=== PATIENT | male | born 1990 | race African-American/Black ===

== ENCOUNTER 2017-01-03 08:38 | Emergency (ER) | payer OTHER ==
[~2017-01-03] VITALS: Ht 175.3 cm; Wt 81.6 kg
[~2017-01-03 08:38] MED LIST: AUG500 PO; NORCO1 TA2 PO
[2017-01-03 08:56] LABS: BASOPHIL % 0.3 % (0-2); PLATELET COUNT 395 x10^3mcL (130-400); RED CELL DISTRIBUTION WIDTH 13.5 % (11.5-14.5)
[2017-01-03 09:06] LABS: CALCIUM 9.1 mg/dL (8.5-10.1); CARBON DIOXIDE 27.7 mmol/L (21-32); CHLORIDE SERUM 102 mmol/L (98-107); CREATININE SERUM 0.9 mg/dL (0.7-1.3); GFR1 > 60 mL/min; GLUCOSE SERUM 161 mg/dL (74-106); POTASSIUM SERUM 4.2 mmol/L (3.5-5.1); SODIUM SERUM 139 mmol/L (136-145)
[2017-01-03 09:11] LABS: ALBUMIN 3.4 g/dL (3.4-5.0); ALKALINE PHOSPHATASE 108 U/L (46-116); ALT/SGPT 41 U/L (16-63); AST/SGOT 19 U/L (15-37); BILIRUBIN TOTAL 0.3 mg/dL (0.20-1.00)
[2017-01-03 10:02] VITALS: BP 147/76
== END 2017-01-03 09:59 | disposition short-term general hospital (02) ==
LOC: ED 08:38
PROVIDERS: Emergency Medicine
DX: S06.5X0A Traumatic subdural hemorrhage without loss of consciousness, initial encounter (principal); F15.10 Other stimulant abuse, uncomplicated; W17.89XA Other fall from one level to another, initial encounter; Y92.89 Other specified places as the place of occurrence of the external cause; Y93.89 Activity, other specified; Y99.8 Other external cause status
CPT/HCPCS: J1100; J2060; J7030

== ENCOUNTER 2017-02-01 09:06 | Inpatient (IN) | payer OTHER ==
[~2017-02-01] VITALS: Ht 172.7 cm; Wt 77.6 kg
[2017-02-01 10:21] LABS: PLATELET COUNT 333 x10^3mcL (130-400); RED CELL DISTRIBUTION WIDTH 13.6 % (11.5-14.5)
[2017-02-01 10:29] LABS: ALBUMIN 3.9 g/dL (3.4-5.0); ALKALINE PHOSPHATASE 79 U/L (46-116); ALT/SGPT 64 U/L (16-63); AST/SGOT 29 U/L (15-37); BILIRUBIN TOTAL 0.33 mg/dL (0.20-1.00); CALCIUM 9.4 mg/dL (8.5-10.1); CARBON DIOXIDE 28.8 mmol/L (21-32); CHLORIDE SERUM 87 mmol/L (98-107); CREATININE SERUM 0.7 mg/dL (0.7-1.3); GFR1 > 60 mL/min; GLUCOSE SERUM 91 mg/dL (74-106); LIPASE 96 IU/L (73-393); POTASSIUM SERUM 4.7 mmol/L (3.5-5.1); TOTAL PROTEIN, SERUM 7.7 g/dL (6.4-8.2)
[2017-02-01 10:35] LABS: SODIUM SERUM 122 mmol/L (136-145)
[2017-02-01 11:05] LABS: UA SPECIFIC GRAVITY 1.015 (1.005-1.035); microscopic required? YES; urine erythrocyte NEGATIVE (NEGATIVE)
[2017-02-01 11:16] LABS: ALBUMIN 3.5 g/dL (3.4-5.0); ALKALINE PHOSPHATASE 70 U/L (46-116); ALT/SGPT 46 U/L (16-63); AST/SGOT 30 U/L (15-37); BILIRUBIN TOTAL 0.3 mg/dL (0.20-1.00); CALCIUM 8.5 mg/dL (8.5-10.1); CARBON DIOXIDE 28.2 mmol/L (21-32); CHLORIDE SERUM 89 mmol/L (98-107); CREATININE SERUM 0.6 mg/dL (0.7-1.3); GFR1 > 60 mL/min; GLUCOSE SERUM 88 mg/dL (74-106); POTASSIUM SERUM 4.5 mmol/L (3.5-5.1)
[2017-02-01 11:20] LABS: SODIUM SERUM 121 mmol/L (136-145)
[2017-02-01] MEDS ORDERED: KEPPRA500 MG PO (12:27)
[2017-02-01 13:34] LABS: CHOLESTEROL/HDL RATIO 1.9; MAGNESIUM 1.8 mg/dL (1.8-2.4); PHOSPHOROUS 4.2 mg/dL (2.5-4.9)
[2017-02-01 13:40] LABS: T3 TOTAL 1.53 ng/mL
[2017-02-01 13:46] LABS: FREE T4 1.06 ng/dL (0.76-1.46); FREE THYROXINE INDEX 3.5 ug/dL (1.4-4.5); T4(THYROXINE) 9.3 ug/dL (4.7-13.3)
[2017-02-01 16:58] VITALS: BP 144/87
[2017-02-01 17:40] LABS: CALCIUM 9.1 mg/dL (8.5-10.1); CARBON DIOXIDE 27.4 mmol/L (21-32); CHLORIDE SERUM 89 mmol/L (98-107); CREATININE SERUM 0.8 mg/dL (0.7-1.3); GFR1 > 60 mL/min; GLUCOSE SERUM 100 mg/dL (74-106)
[2017-02-01 17:44] LABS: POTASSIUM SERUM 3.7 mmol/L (3.5-5.1); SODIUM SERUM 124 mmol/L (136-145)
[2017-02-01 20:00] VITALS: BP 119/74
[2017-02-02 00:34] LABS: AMPHETAMINE QUAL UR POSITIVE (NEG <=1000)
[2017-02-02 05:48] VITALS: BP 121/77
[2017-02-02 06:38] LABS: BASOPHIL % 0.6 % (0-2); PLATELET COUNT 314 x10^3mcL (130-400); RED CELL DISTRIBUTION WIDTH 13.8 % (11.5-14.5)
[2017-02-02 06:43] LABS: CALCIUM 8.6 mg/dL (8.5-10.1); CHLORIDE SERUM 91 mmol/L (98-107); CREATININE SERUM 0.6 mg/dL (0.7-1.3); GFR1 > 60 mL/min; GLUCOSE SERUM 79 mg/dL (74-106); PHOSPHOROUS 4.8 mg/dL (2.5-4.9); POTASSIUM SERUM 4.4 mmol/L (3.5-5.1); SODIUM SERUM 125 mmol/L (136-145)
[2017-02-02 11:22] VITALS: BP 111/57
[2017-02-02 13:10] LABS: CALCIUM 8.4 mg/dL (8.5-10.1); CARBON DIOXIDE 30.8 mmol/L (21-32); CHLORIDE SERUM 89 mmol/L (98-107); CREATININE SERUM 0.6 mg/dL (0.7-1.3); GFR1 > 60 mL/min; GLUCOSE SERUM 91 mg/dL (74-106); POTASSIUM SERUM 4.3 mmol/L (3.5-5.1)
[2017-02-02 13:12] LABS: SODIUM SERUM 123 mmol/L (136-145)
[2017-02-02 14:00] VITALS: BP 100/61; BP 116/66
[2017-02-02 18:56] VITALS: BP 116/66; BP 96/69
[2017-02-02 19:41] LABS: CALCIUM 8.3 mg/dL (8.5-10.1); CARBON DIOXIDE 29.3 mmol/L (21-32); CHLORIDE SERUM 89 mmol/L (98-107); CREATININE SERUM 0.7 mg/dL (0.7-1.3); GFR1 > 60 mL/min; GLUCOSE SERUM 74 mg/dL (74-106); POTASSIUM SERUM 4.3 mmol/L (3.5-5.1); SODIUM SERUM 126 mmol/L (136-145)
[2017-02-02 21:00] VITALS: BP 121/73
[2017-02-03 05:05] VITALS: BP 111/72
[2017-02-03 06:24] LABS: BASOPHIL % 0.4 % (0-2); PLATELET COUNT 302 x10^3mcL (130-400); RED CELL DISTRIBUTION WIDTH 13.6 % (11.5-14.5)
[2017-02-03 06:27] LABS: CALCIUM 8.7 mg/dL (8.5-10.1); CARBON DIOXIDE 28.7 mmol/L (21-32); CHLORIDE SERUM 90 mmol/L (98-107); CREATININE SERUM 0.6 mg/dL (0.7-1.3); GFR1 > 60 mL/min; GLUCOSE SERUM 77 mg/dL (74-106); POTASSIUM SERUM 4.3 mmol/L (3.5-5.1)
[2017-02-03 06:41] LABS: SODIUM SERUM 124 mmol/L (136-145)
[2017-02-03 14:07] VITALS: BP 126/77
[2017-02-03 14:20] VITALS: BP 133/82; BP 140/88
[2017-02-03 16:00] VITALS: BP 140/88
[2017-02-03 18:04] LABS: CALCIUM 8.4 mg/dL (8.5-10.1); CARBON DIOXIDE 28.3 mmol/L (21-32); CHLORIDE SERUM 89 mmol/L (98-107); CREATININE SERUM 0.7 mg/dL (0.7-1.3); GFR1 > 60 mL/min; GLUCOSE SERUM 85 mg/dL (74-106); POTASSIUM SERUM 3.5 mmol/L (3.5-5.1)
[2017-02-03 18:06] LABS: SODIUM SERUM 123 mmol/L (136-145)
[2017-02-03 19:54] VITALS: BP 121/64
[2017-02-03 23:14] VITALS: BP 130/67
[2017-02-04 01:12] LABS: CALCIUM 8.2 mg/dL (8.5-10.1); CARBON DIOXIDE 29.6 mmol/L (21-32); CHLORIDE SERUM 88 mmol/L (98-107); CREATININE SERUM 0.7 mg/dL (0.7-1.3); GFR1 > 60 mL/min; GLUCOSE SERUM 74 mg/dL (74-106); POTASSIUM SERUM 3.9 mmol/L (3.5-5.1)
[2017-02-04 01:13] LABS: SODIUM SERUM 124 mmol/L (136-145)
[2017-02-04 03:15] VITALS: BP 113/62
[2017-02-04 05:26] LABS: BASOPHIL % 0.6 % (0-2); PLATELET COUNT 311 x10^3mcL (130-400); RED CELL DISTRIBUTION WIDTH 13.5 % (11.5-14.5)
[2017-02-04 05:41] LABS: CALCIUM 8.4 mg/dL (8.5-10.1); CARBON DIOXIDE 27.1 mmol/L (21-32); CHLORIDE SERUM 90 mmol/L (98-107); CREATININE SERUM 0.6 mg/dL (0.7-1.3); GFR1 > 60 mL/min; GLUCOSE SERUM 81 mg/dL (74-106); POTASSIUM SERUM 4.5 mmol/L (3.5-5.1)
[2017-02-04 05:49] LABS: SODIUM SERUM 122 mmol/L (136-145)
[2017-02-04 07:23] LABS: CALCIUM 8.1 mg/dL (8.5-10.1); CARBON DIOXIDE 29.2 mmol/L (21-32); CHLORIDE SERUM 86 mmol/L (98-107); CREATININE SERUM 0.7 mg/dL (0.7-1.3); GFR1 > 60 mL/min; GLUCOSE SERUM 80 mg/dL (74-106); POTASSIUM SERUM 4.7 mmol/L (3.5-5.1)
[2017-02-04 07:47] LABS: SODIUM SERUM 119 mmol/L (136-145)
[2017-02-04] MEDS ORDERED: LAM100 PO (08:40)
[2017-02-04] MEDS ORDERED: SODIUM CHLORID500 M1 IV (08:44)
[2017-02-04] MEDS ORDERED: ROC1I IV (08:53)
[2017-02-04 09:02] VITALS: BP 133/69
[2017-02-04 10:07] VITALS: BP 118/90
[2017-02-04 10:28] LABS: CALCIUM 8.7 mg/dL (8.5-10.1); CARBON DIOXIDE 27.3 mmol/L (21-32); CHLORIDE SERUM 88 mmol/L (98-107); CREATININE SERUM 0.7 mg/dL (0.7-1.3); GFR1 > 60 mL/min; GLUCOSE SERUM 86 mg/dL (74-106); POTASSIUM SERUM 4.5 mmol/L (3.5-5.1)
[2017-02-04 10:57] LABS: SODIUM SERUM 119 mmol/L (136-145)
== END 2017-02-04 11:47 | disposition short-term general hospital (02) | DRG 424 ==
LOC: ED 09:06 → DU 12:33 → IC 02-03 14:15
PROVIDERS: Emergency Medicine; ADMIT Family Medicine
DX: E22.2 Syndrome of inappropriate secretion of antidiuretic hormone (principal); G93.41 Metabolic encephalopathy; I62.00 Nontraumatic subdural hemorrhage, unspecified; E86.0 Dehydration; F15.10 Other stimulant abuse, uncomplicated; F12.10 Cannabis abuse, uncomplicated; E87.0 Hyperosmolality and hypernatremia; G40.909 Epilepsy, unspecified, not intractable, without status epilepticus; Z59.0 Homelessness; N39.0 Urinary tract infection, site not specified; R64 Cachexia; Z68.27 Body mass index [BMI] 27.0-27.9, adult
CPT/HCPCS: 84439; J0696; J1100; J2150; J2405; J3490; J7030; J7040

== ENCOUNTER 2017-05-18 12:53 | Emergency (ER) | payer OTHER ==
[~2017-05-18] VITALS: Ht 172.7 cm; Wt 72.6 kg
[~2017-05-18 12:53] MED LIST changes: +KEPPRA500 MG PO; +LAM100 PO; +ROC1I IV; +SODIUM CHLORID500 M1 IV
[2017-05-18 12:58] VITALS: Ht 172.7 cm; Wt 72.6 kg
[2017-05-18 14:38] LABS: CALCIUM 9.5 mg/dL (8.5-10.1); CARBON DIOXIDE 25.8 mmol/L (21-32); CHLORIDE SERUM 106 mmol/L (98-107); GFR1 > 60 mL/min; GLUCOSE SERUM 97 mg/dL (74-106); POTASSIUM SERUM 4.3 mmol/L (3.5-5.1); SODIUM SERUM 146 mmol/L (136-145)
[2017-05-18 14:43] LABS: ALBUMIN 4.1 g/dL (3.4-5.0); ALKALINE PHOSPHATASE 104 U/L (46-116); ALT/SGPT 30 U/L (16-63); AST/SGOT 13 U/L (15-37); BILIRUBIN TOTAL 0.57 mg/dL (0.20-1.00)
[2017-05-18 14:45] LABS: TOTAL PROTEIN, SERUM 8.3 g/dL (6.4-8.2)
[2017-05-18 18:10] VITALS: BP 152/84
== END 2017-05-18 18:10 | disposition home or self-care (01) ==
LOC: ED 12:53
PROVIDERS: Specialist
DX: R56.9 Unspecified convulsions (principal); F15.10 Other stimulant abuse, uncomplicated
CPT/HCPCS: J1165; J3490; J7030

== ENCOUNTER 2017-05-26 09:41 | Emergency (ER) | payer OTHER ==
[~2017-05-26] VITALS: Ht 177.8 cm; Wt 81.6 kg
[2017-05-26 09:47] VITALS: Ht 177.8 cm; Wt 81.6 kg
[2017-05-26 10:29] LABS: BASOPHIL % 1.6 % (0-2); PLATELET COUNT 320 x10^3mcL (130-400); RED CELL DISTRIBUTION WIDTH 13.8 % (11.5-14.5)
[2017-05-26 10:54] LABS: CALCIUM 8.6 mg/dL (8.5-10.1); CARBON DIOXIDE 30.7 mmol/L (21-32); CHLORIDE SERUM 104 mmol/L (98-107); CREATININE SERUM 0.8 mg/dL (0.7-1.3); GFR1 > 60 mL/min; GLUCOSE SERUM 82 mg/dL (74-106); POTASSIUM SERUM 3.8 mmol/L (3.5-5.1); SODIUM SERUM 140 mmol/L (136-145)
[2017-05-26 11:06] LABS: ALBUMIN 3.5 g/dL (3.4-5.0); ALKALINE PHOSPHATASE 97 U/L (46-116); ALT/SGPT 45 U/L (16-63); AMYLASE 54 U/L (25-115); AST/SGOT 17 U/L (15-37); BILIRUBIN TOTAL 0.2 mg/dL (0.20-1.00); CHOLESTEROL 152 mg/dL (<200); HDL CHOLESTEROL 43 mg/dL (40-60); LIPASE 143 IU/L (73-393); MAGNESIUM 2.2 mg/dL (1.8-2.4); T4(THYROXINE) 5.9 ug/dL (4.7-13.3); TOTAL PROTEIN, SERUM 7.1 g/dL (6.4-8.2)
[2017-05-26 11:45] LABS: microscopic required? NO
[2017-05-26 11:58] LABS: UA SPECIFIC GRAVITY 1.015 (1.005-1.035); urine erythrocyte NEGATIVE (NEGATIVE)
[2017-05-26 12:11] LABS: AMPHETAMINE QUAL UR NONE DETECTED (NEG <=1000)
[2017-05-26 12:24] VITALS: BP 140/92
== END 2017-05-26 12:24 | disposition short-term general hospital (02) ==
LOC: ED 09:41
PROVIDERS: Emergency Medicine
DX: S01.01XA Laceration without foreign body of scalp, initial encounter (principal); S01.81XA Laceration without foreign body of other part of head, initial encounter; Y04.8XXA Assault by other bodily force, initial encounter; Y93.89 Activity, other specified; Y92.89 Other specified places as the place of occurrence of the external cause; Y99.8 Other external cause status
CPT/HCPCS: 36415; 83880; 90715; G0480; J2001; Q0092

== ENCOUNTER 2017-06-02 09:25 | Emergency (ER) | payer OTHER ==
[~2017-06-02] VITALS: Ht 180.3 cm; Wt 72.6 kg
[2017-06-02 09:25] VITALS: Ht 180.3 cm; Wt 72.6 kg
[2017-06-02 10:53] LABS: BASOPHIL % 0.4 % (0-2); PLATELET COUNT 345 x10^3mcL (130-400); RED CELL DISTRIBUTION WIDTH 14.4 % (11.5-14.5)
[2017-06-02 11:07] LABS: ALBUMIN 3.7 g/dL (3.4-5.0); ALKALINE PHOSPHATASE 81 U/L (46-116); ALT/SGPT 201 U/L (16-63); AMYLASE 59 U/L (25-115); AST/SGOT 83 U/L (15-37); BILIRUBIN TOTAL 0.2 mg/dL (0.20-1.00); CALCIUM 8.8 mg/dL (8.5-10.1); CARBON DIOXIDE 31.5 mmol/L (21-32); CHLORIDE SERUM 83 mmol/L (98-107); CREATININE SERUM 0.6 mg/dL (0.7-1.3); GFR1 > 60 mL/min; GLUCOSE SERUM 123 mg/dL (74-106); LIPASE 120 IU/L (73-393); POTASSIUM SERUM 4.6 mmol/L (3.5-5.1); T4(THYROXINE) 8.9 ug/dL (4.7-13.3); TOTAL PROTEIN, SERUM 7.2 g/dL (6.4-8.2)
[2017-06-02 11:10] LABS: CHOLESTEROL 209 mg/dL (<200); HDL CHOLESTEROL 82 mg/dL (40-60); SODIUM SERUM 123 mmol/L (136-145)
[2017-06-02 11:33] LABS: microscopic required? YES; urine erythrocyte TRACE (NEGATIVE)
[2017-06-02 11:52] LABS: AMPHETAMINE QUAL UR NONE DETECTED (NEG <=1000)
[2017-06-02 12:26] VITALS: BP 124/88
== END 2017-06-02 12:26 | disposition short-term general hospital (02) ==
LOC: ED 09:25
PROVIDERS: Emergency Medicine
DX: E78.1 Pure hyperglyceridemia (principal); R60.9 Edema, unspecified; F15.90 Other stimulant use, unspecified, uncomplicated; Z59.0 Homelessness
CPT/HCPCS: 36415; 82962; 83880; G0480; J7030; Q0092